=== PATIENT | female | born 1985 ===

== ENCOUNTER 2019-12-26 12:00 | Inpatient (IN) | payer OTHER ==
[~2019-12-26] VITALS: Ht 157.5 cm; Wt 58.5 kg
[2020-01-22] MEDS ORDERED: PRENATAL VITAM1 EAC4 PO (08:04)
== END 2020-01-24 13:38 | disposition home or self-care (01) | DRG 807 ==
LOC: LDR 01-22 07:01 → SURG-SUITE 01-22 07:01 → LDR 01-22 09:24 → OB/GYN 01-22 12:00 → EDBD 01-22 12:00 → SURG-SUITE 01-22 14:05
PROVIDERS: ADMIT Obstetrics & Gynecology Maternal & Fetal Medicine; ATTEND Obstetrics & Gynecology Maternal & Fetal Medicine
PROC: 10E0XZZ Delivery of Products of Conception, External Approach (ICD-10-PCS; principal; 2020-01-22)
PROC: 0KQM0ZZ Repair Perineum Muscle, Open Approach (ICD-10-PCS; 2020-01-22)
PROC: 4A1HXFZ Monitoring of Products of Conception, Cardiac Rhythm, External Approach (ICD-10-PCS; 2020-01-22)
PROC: 3E033VJ Introduction of Other Hormone into Peripheral Vein, Percutaneous Approach (ICD-10-PCS; 2020-01-22)
DX: O70.1 Second degree perineal laceration during delivery (principal); Z37.0 Single live birth; Z3A.40 40 weeks gestation of pregnancy; Z20.828 Contact with and (suspected) exposure to other viral communicable diseases

== ENCOUNTER 2020-01-16 09:14 | Outpatient (CLI) | payer OTHER | END 2020-01-16 10:16 | disposition home or self-care (01) | LOC: NST 09:14 | PROVIDERS: ATTEND Obstetrics & Gynecology Maternal & Fetal Medicine | DX: Z34.83 Encounter for supervision of other normal pregnancy, third trimester (principal) ==